=== PATIENT | female | born 1950 | race Caucasian/White ===

== ENCOUNTER → 2016-10-29 | Outpatient (CLI) | payer OTHER | DX: R05 Cough (principal); J98.09 Other diseases of bronchus, not elsewhere classified | CPT/HCPCS: 71020 ==

== ENCOUNTER → 2021-04-03 | Outpatient (CLI) | payer MEDICARE, OTHER ==
[~2021-04-03] MED LIST: LODINE CAP 300300 MG PO
== END ==
LOC: HEART 5 14:20
DX: R06.02 Shortness of breath (principal); R94.2 Abnormal results of pulmonary function studies; Z87.891 Personal history of nicotine dependence
CPT/HCPCS: 94010

== ENCOUNTER 2021-04-10 16:32 | Emergency (ER) | payer MEDICARE, OTHER ==
[2021-04-10] MEDS ORDERED: LODINE CAP 300300 MG PO (21:14)
== END 2021-04-10 21:27 | disposition home or self-care (01) ==
LOC: ER1 16:32
DX: S83.91XA Sprain of unspecified site of right knee, initial encounter (principal); W19.XXXA Unspecified fall, initial encounter; Y92.009 Unspecified place in unspecified non-institutional (private) residence as the place of occurrence of the external cause
CPT/HCPCS: 73562; 73700; 99284

== ENCOUNTER → 2021-04-23 | Outpatient (CLI) | payer MEDICARE, OTHER | LOC: KOH-I 04-20 08:15 | DX: M25.561 Pain in right knee (principal) | CPT/HCPCS: 73721 ==

== ENCOUNTER → 2021-05-29 | Outpatient (CLI) | payer MEDICARE, OTHER | LOC: KOH-I 15:00 | DX: M54.16 Radiculopathy, lumbar region (principal); M54.14 Radiculopathy, thoracic region; M51.34 Other intervertebral disc degeneration, thoracic region | CPT/HCPCS: 72125; 72128 ==

== ENCOUNTER → 2021-06-28 | Outpatient (CLI) | payer MEDICARE, OTHER | LOC: HEART 5 09:06 | DX: I20.8 Other forms of angina pectoris (principal); R06.02 Shortness of breath; R00.1 Bradycardia, unspecified | CPT/HCPCS: 78452; A9502; J2785 ==

== ENCOUNTER → 2021-07-05 | Outpatient (CLI) | payer MEDICARE, OTHER | LOC: KOH-I 12:42 | DX: R07.9 Chest pain, unspecified (principal) | CPT/HCPCS: 71100 ==

== ENCOUNTER → 2021-08-08 | Outpatient (CLI) | payer MEDICARE, OTHER ==
[~2021-08-08] MED LIST changes: +ACCUPRIL40 MG PO; +ALBUTEROL INH; +ALDACTONE25 MG PO; +ANTI-DIARRHEAL2 M1 PO; +CRESTOR5 MG PO; +DESYREL 50 MG T50 MG PO; +LEVOXYL150 MCG PO; +MELATONIN10 M2 PO; +OMEPRAZOLE40 MG PO; +PROZAC40 MG PO; +SINGULAIR10 MG PO; +SYMBICORT INH; +VITAMIN D21250 MCG PO
[2021-08-08 14:13] LABS: HEMOGLOBIN 13.9 gm/dl (12.3-15.3); RED BLOOD COUNT 4.73 M/UL (4.00-5.10); WHITE BLOOD COUNT 8.4 K/UL (4.5-11.0)
[2021-08-08 14:33] LABS: BUN/CREATININE RATIO 14 (0-10)
== END ==
LOC: OPSV2 08-07 11:30 → EDSTATUS 12:30 → OPSV2 12:30
PROVIDERS: Orthopaedic Surgery
DX: Z01.818 Encounter for other preprocedural examination (principal)
CPT/HCPCS: 71046; 80048; 81001; 85027; 87081

== ENCOUNTER → 2021-08-09 | Outpatient (CLI) | payer MEDICARE, OTHER ==
[~2021-08-09] MED LIST changes: +ADVAIR 500-501 EACH INH
== END ==
LOC: HEART 5 14:07
DX: J45.30 Mild persistent asthma, uncomplicated (principal)
CPT/HCPCS: 94010

== ENCOUNTER → 2021-08-19 | Outpatient (CLI) | payer MEDICARE, OTHER ==
[~2021-08-19] MED LIST changes: +ACETAMINOPHEN-1 EAC1 PO; -ALBUTEROL INH; -DESYREL 50 MG T50 MG PO; +METHYLPREDNISOLO4 MG PO; +PROVENTIL HFA6.7 GM INH; +SYMBICORT 16010.2 GM INH; -SYMBICORT INH; +TRAZODONE HCL100 MG PO
[2021-08-19 13:38] LABS: BUN/CREATININE RATIO 15 (0-10)
== END ==
LOC: LAB 12:41
PROVIDERS: Orthopaedic Surgery
DX: Z01.812 Encounter for preprocedural laboratory examination (principal); M54.12 Radiculopathy, cervical region; I10 Essential (primary) hypertension
CPT/HCPCS: 80048; 86850; 86900; 86901

== ENCOUNTER 2021-08-20 05:22 | Inpatient (IN) | payer MEDICARE, OTHER ==
[~2021-08-20] VITALS: Ht 170.2 cm; Wt 117.9 kg
[~2021-08-20 05:22] MED LIST changes: -ACETAMINOPHEN-1 EAC1 PO; -ADVAIR 500-501 EACH INH; -METHYLPREDNISOLO4 MG PO; -PROVENTIL HFA6.7 GM INH; -SYMBICORT 16010.2 GM INH; -TRAZODONE HCL100 MG PO
[2021-08-20] MEDS ORDERED: ADVAIR 500-501 EACH INH (06:43)
[2021-08-20 16:30] LABS: HEMOGLOBIN 13.6 gm/dl (12.3-15.3); RED BLOOD COUNT 4.6 M/UL (4.00-5.10); WHITE BLOOD COUNT 7.4 K/UL (4.5-11.0)
[2021-08-20 16:55] LABS: BUN/CREATININE RATIO 16 (0-10)
[2021-08-21 01:59] LABS: RED BLOOD COUNT 4.42 M/UL (4.00-5.10)
[2021-08-21 02:05] LABS: WHITE BLOOD COUNT 9.4 K/UL (4.5-11.0)
[2021-08-21 02:41] LABS: BUN/CREATININE RATIO 16 (0-10)
[2021-08-21] MEDS ORDERED: TRAZODONE HCL100 MG PO (16:57)
[2021-08-21] MEDS ORDERED: PROVENTIL HFA6.7 GM INH (17:06)
[2021-08-21] MEDS ORDERED: SYMBICORT 16010.2 GM INH (17:07)
[2021-08-21] MEDS ORDERED: METHYLPREDNISOLO4 MG PO (21:24)
[2021-08-21] MEDS ORDERED: ACETAMINOPHEN-1 EAC1 PO (21:25)
[2021-08-22 03:38] LABS: HEMOGLOBIN 12.5 gm/dl (12.3-15.3); RED BLOOD COUNT 4.21 M/UL (4.00-5.10)
[2021-08-22 03:47] LABS: WHITE BLOOD COUNT 15.9 K/UL (4.5-11.0)
[2021-08-22 04:10] LABS: BUN/CREATININE RATIO 21 (0-10)
[2021-08-23 03:42] LABS: HEMOGLOBIN 13.3 gm/dl (12.3-15.3); RED BLOOD COUNT 4.53 M/UL (4.00-5.10)
[2021-08-23 03:46] LABS: WHITE BLOOD COUNT 10.5 K/UL (4.5-11.0)
[2021-08-23 04:08] LABS: BUN/CREATININE RATIO 24 (0-10)
[2021-08-24 03:47] LABS: HEMOGLOBIN 13.8 gm/dl (12.3-15.3); RED BLOOD COUNT 4.68 M/UL (4.00-5.10); WHITE BLOOD COUNT 12.7 K/UL (4.5-11.0)
[2021-08-24 04:18] LABS: BUN/CREATININE RATIO 19 (0-10)
[2021-08-24] MEDS ORDERED: CYCLOBENZAPRINE10 MG PO (10:19)
== END 2021-08-24 11:00 | disposition home or self-care (01) | DRG 460 ==
LOC: OR 05:22 → CCU 15:47 → PROG CARE 08-21 19:36
PROVIDERS: Internal Medicine; ADMIT Orthopaedic Surgery
PROC: 0RG6071 Fusion of Thoracic Vertebral Joint with Autologous Tissue Substitute, Posterior Approach, Posterior Column, Open Approach (ICD-10-PCS; 2021-08-20)
PROC: 0RG4071 Fusion of Cervicothoracic Vertebral Joint with Autologous Tissue Substitute, Posterior Approach, Posterior Column, Open Approach (ICD-10-PCS; 2021-08-20)
PROC: 00NW0ZZ Release Cervical Spinal Cord, Open Approach (ICD-10-PCS; 2021-08-20)
PROC: 4A11X4G Monitoring of Peripheral Nervous Electrical Activity, Intraoperative, External Approach (ICD-10-PCS; 2021-08-20)
PROC: 0RG2071 Fusion of 2 or more Cervical Vertebral Joints with Autologous Tissue Substitute, Posterior Approach, Posterior Column, Open Approach (ICD-10-PCS; principal; 2021-08-20 07:30)
DX: M48.02 Spinal stenosis, cervical region (principal); M47.12 Other spondylosis with myelopathy, cervical region; Z68.41 Body mass index [BMI] 40.0-44.9, adult; I10 Essential (primary) hypertension; Z20.822 Contact with and (suspected) exposure to COVID-19; E78.5 Hyperlipidemia, unspecified; J45.909 Unspecified asthma, uncomplicated; F32.9 Major depressive disorder, single episode, unspecified; F41.9 Anxiety disorder, unspecified; E87.6 Hypokalemia; J44.9 Chronic obstructive pulmonary disease, unspecified; E03.9 Hypothyroidism, unspecified; E83.42 Hypomagnesemia; E83.51 Hypocalcemia; M40.292 Other kyphosis, cervical region; E66.01 Morbid (severe) obesity due to excess calories; M35.3 Polymyalgia rheumatica; Z80.3 Family history of malignant neoplasm of breast; Z80.1 Family history of malignant neoplasm of trachea, bronchus and lung; Z90.49 Acquired absence of other specified parts of digestive tract; Z79.899 Other long term (current) drug therapy; Z87.891 Personal history of nicotine dependence
CPT/HCPCS: 36415; 36600; 71045; 72040; 76000; 80048; 80053; 82803; 83735; 83880; 85025; 85027; 85610; 85730; 86850; 86900; 86901; 94002; 94003; 94640; 94664; 94760; 97116-GP-CQ; 97162; 97165; 97530; 97535; C1713; C1762; J0360; J0610; J0690; J1040; J1100; J1170; J2001; J2250; J2370; J2405; J2704; J3010; J3370; J3475; J3480; J7030; J7040; J7120

== ENCOUNTER 2021-09-08 14:57 | Inpatient (IN) | payer MEDICARE, OTHER ==
[~2021-09-08] VITALS: Ht 165.1 cm; Wt 111.1 kg
[~2021-09-08 14:57] MED LIST changes: +ACETAMINOPHEN-1 EAC1 PO; +ADVAIR 500-501 EACH INH; +CYCLOBENZAPRINE10 MG PO; +METHYLPREDNISOLO4 MG PO; +PROVENTIL HFA6.7 GM INH; +SYMBICORT 16010.2 GM INH; +TRAZODONE HCL100 MG PO
[2021-09-08 16:44] LABS: HEMOGLOBIN 12.8 gm/dl (12.3-15.3); RED BLOOD COUNT 4.53 M/UL (4.00-5.10); WHITE BLOOD COUNT 6.7 K/UL (4.5-11.0)
[2021-09-08 17:06] LABS: BUN/CREATININE RATIO 22 (0-10)
[2021-09-09 10:48] LABS: HEMOGLOBIN 14.1 gm/dl (12.3-15.3); RED BLOOD COUNT 4.93 M/UL (4.00-5.10)
[2021-09-09 11:01] LABS: BUN/CREATININE RATIO 17 (0-10)
[2021-09-10 04:03] LABS: HEMOGLOBIN 12.4 gm/dl (12.3-15.3); RED BLOOD COUNT 4.32 M/UL (4.00-5.10); WHITE BLOOD COUNT 7.9 K/UL (4.5-11.0)
[2021-09-10 04:45] LABS: BUN/CREATININE RATIO 16 (0-10)
[2021-09-11 05:39] LABS: HEMOGLOBIN 12.2 gm/dl (12.3-15.3); RED BLOOD COUNT 4.29 M/UL (4.00-5.10); WHITE BLOOD COUNT 9.1 K/UL (4.5-11.0)
[2021-09-11 05:51] LABS: BUN/CREATININE RATIO 16 (0-10)
--- NOTE | 2021-09-12 04:10 | NUR ---
LATE ENTRY 09/12/21 0300 took report from JIN Nye
[2021-09-12 05:59] LABS: HEMOGLOBIN 12.6 gm/dl (12.3-15.3); RED BLOOD COUNT 4.42 M/UL (4.00-5.10); WHITE BLOOD COUNT 9.5 K/UL (4.5-11.0)
[2021-09-12 07:44] LABS: BUN/CREATININE RATIO 18 (0-10)
[2021-09-13 04:42] LABS: HEMOGLOBIN 12.7 gm/dl (12.3-15.3); RED BLOOD COUNT 4.5 M/UL (4.00-5.10); WHITE BLOOD COUNT 8.7 K/UL (4.5-11.0)
[2021-09-13 05:53] LABS: BUN/CREATININE RATIO 26 (0-10)
[2021-09-13] MEDS ORDERED: BACTRIM DS TAB1 EACH PO (12:58)
== END 2021-09-13 14:36 | disposition home or self-care (01) | DRG 454 ==
LOC: PROG CARE 14:57 → CCU 09-10 15:13
PROVIDERS: Internal Medicine; ADMIT Orthopaedic Surgery
PROC: 0RG10A0 Fusion of Cervical Vertebral Joint with Interbody Fusion Device, Anterior Approach, Anterior Column, Open Approach (ICD-10-PCS; principal; 2021-09-10)
PROC: 0RG1071 Fusion of Cervical Vertebral Joint with Autologous Tissue Substitute, Posterior Approach, Posterior Column, Open Approach (ICD-10-PCS; 2021-09-10)
PROC: 0RB30ZZ Excision of Cervical Vertebral Disc, Open Approach (ICD-10-PCS; 2021-09-10)
PROC: 4A10X4G Monitoring of Central Nervous Electrical Activity, Intraoperative, External Approach (ICD-10-PCS; 2021-09-10)
PROC: 0RP30JZ Removal of Synthetic Substitute from Cervical Vertebral Disc, Open Approach (ICD-10-PCS; 2021-09-10)
DX: T84.89XA Other specified complication of internal orthopedic prosthetic devices, implants and grafts, initial encounter (principal); G95.89 Other specified diseases of spinal cord; Z68.41 Body mass index [BMI] 40.0-44.9, adult; Z20.822 Contact with and (suspected) exposure to COVID-19; I10 Essential (primary) hypertension; E78.5 Hyperlipidemia, unspecified; J44.9 Chronic obstructive pulmonary disease, unspecified; M35.3 Polymyalgia rheumatica; M43.12 Spondylolisthesis, cervical region; M40.292 Other kyphosis, cervical region; E03.9 Hypothyroidism, unspecified; K21.9 Gastro-esophageal reflux disease without esophagitis; E66.01 Morbid (severe) obesity due to excess calories; G47.00 Insomnia, unspecified; F17.290 Nicotine dependence, other tobacco product, uncomplicated; F41.9 Anxiety disorder, unspecified; R29.6 Repeated falls; E11.65 Type 2 diabetes mellitus with hyperglycemia; M81.0 Age-related osteoporosis without current pathological fracture; E55.9 Vitamin D deficiency, unspecified; W01.0XXA Fall on same level from slipping, tripping and stumbling without subsequent striking against object, initial encounter; Y83.8 Other surgical procedures as the cause of abnormal reaction of the patient, or of later complication, without mention of misadventure at the time of the procedure; Z91.040 Latex allergy status; F32.A Depression, unspecified; Z90.49 Acquired absence of other specified parts of digestive tract; Y92.091 Bathroom in other non-institutional residence as the place of occurrence of the external cause
CPT/HCPCS: 36415; 36600; 70498; 71045; 72040; 80048; 80053; 81001; 82803; 83735; 85025; 85379; 85610; 85730; 86850; 86900; 86901; 93005; 94002; 94003; 94640; 94664; 94760; 97161; 97166; 97530; C1713; C1762; J0360; J0690; J1100; J1170; J2270; J2405; J2704; J7030; J7040; J7120; Q9967; U0002

== ENCOUNTER 2022-02-28 17:36 | Emergency (ER) | payer MEDICARE, OTHER ==
[~2022-02-28 17:36] MED LIST changes: +BACTRIM DS TAB1 EACH PO
[2022-02-28 18:58] LABS: HEMOGLOBIN 13.4 gm/dl (12.3-15.3); RED BLOOD COUNT 4.84 M/UL (4.00-5.10); WHITE BLOOD COUNT 5.9 K/UL (4.5-11.0)
[2022-02-28 19:30] LABS: BUN/CREATININE RATIO 11 (0-10)
== END 2022-02-28 22:10 | disposition home or self-care (01) ==
LOC: ER1 17:36
PROVIDERS: Family Medicine
DX: R07.89 Other chest pain (principal); F19.90 Other psychoactive substance use, unspecified, uncomplicated; E66.9 Obesity, unspecified; M54.2 Cervicalgia; L97.529 Non-pressure chronic ulcer of other part of left foot with unspecified severity; M35.3 Polymyalgia rheumatica; E78.5 Hyperlipidemia, unspecified; J44.9 Chronic obstructive pulmonary disease, unspecified; I10 Essential (primary) hypertension; Z90.49 Acquired absence of other specified parts of digestive tract; E03.9 Hypothyroidism, unspecified; F17.290 Nicotine dependence, other tobacco product, uncomplicated
CPT/HCPCS: 71045; 80053; 82550; 82553; 84484; 85025; 93005; 99285

== ENCOUNTER 2022-03-29 14:45 | Emergency (ER) | payer MEDICARE, OTHER ==
[2022-03-29 17:53] LABS: HEMOGLOBIN 12.1 gm/dl (12.3-15.3); RED BLOOD COUNT 4.42 M/UL (4.00-5.10); WHITE BLOOD COUNT 6.8 K/UL (4.5-11.0)
== END 2022-03-29 18:08 | disposition short-term general hospital (02) ==
LOC: ER1 14:45
PROVIDERS: Emergency Medicine
DX: S06.5X0A Traumatic subdural hemorrhage without loss of consciousness, initial encounter (principal); S32.10XA Unspecified fracture of sacrum, initial encounter for closed fracture; S32.2XXA Fracture of coccyx, initial encounter for closed fracture; S22.039A Unspecified fracture of third thoracic vertebra, initial encounter for closed fracture; S80.02XA Contusion of left knee, initial encounter; I48.91 Unspecified atrial fibrillation; I10 Essential (primary) hypertension; E78.5 Hyperlipidemia, unspecified; Z51.81 Encounter for therapeutic drug level monitoring; W01.198A Fall on same level from slipping, tripping and stumbling with subsequent striking against other object, initial encounter
CPT/HCPCS: 70450; 71045; 72125; 72128; 72131; 72192; 73564; 80053; 82550; 82553; 84484; 85025; 85610; 85730; 93005; 99285

== ENCOUNTER 2022-04-24 10:36 | Inpatient (IN) | payer MEDICARE, OTHER ==
[~2022-04-24] VITALS: Ht 165.1 cm; Wt 90.3 kg
[~2022-04-24 10:36] MED LIST changes: -ALDACTONE25 MG PO; +ALDACTONE50 MG PO; -MELATONIN10 M2 PO; +MELATONIN5 M2 PO
[2022-04-24 11:05] LABS: HEMOGLOBIN 13.9 gm/dl (12.3-15.3); RED BLOOD COUNT 4.94 M/UL (4.00-5.10); WHITE BLOOD COUNT 8.7 K/UL (4.5-11.0)
[2022-04-24] MEDS ORDERED: LISINOPRIL20 MG PO (14:46)
[2022-04-24] MEDS ORDERED: METHYLPREDNISOLO4 MG PO (14:47)
[2022-04-25 03:39] LABS: HEMOGLOBIN 12.3 gm/dl (12.3-15.3); WHITE BLOOD COUNT 7.6 K/UL (4.5-11.0)
[2022-04-25 03:56] LABS: RED BLOOD COUNT 4.41 M/UL (4.00-5.10)
[2022-04-26] MEDS ORDERED: HYDRALAZINE HCL25 MG PO (09:38)
[2022-04-30] MEDS ORDERED: CARVEDILOL12.5 MG PO (11:44)
== END 2022-04-30 13:51 | DRG 683 ==
LOC: ER1 10:36 → MED SURG 4 13:50 → CDU 13:50 → MED SURG 4 18:09
PROVIDERS: Emergency Medicine; Internal Medicine Nephrology; Physician Assistant; ADMIT Internal Medicine
DX: N17.9 Acute kidney failure, unspecified (principal); E87.2 Acidosis; E87.5 Hyperkalemia; E03.9 Hypothyroidism, unspecified; Z20.822 Contact with and (suspected) exposure to COVID-19; E66.9 Obesity, unspecified; E83.52 Hypercalcemia; Z66 Do not resuscitate; I10 Essential (primary) hypertension; E78.5 Hyperlipidemia, unspecified; J44.9 Chronic obstructive pulmonary disease, unspecified; Z87.81 Personal history of (healed) traumatic fracture; Z90.49 Acquired absence of other specified parts of digestive tract; Z87.891 Personal history of nicotine dependence; Z80.1 Family history of malignant neoplasm of trachea, bronchus and lung; Z80.3 Family history of malignant neoplasm of breast; Z80.42 Family history of malignant neoplasm of prostate; Z68.33 Body mass index [BMI] 33.0-33.9, adult
CPT/HCPCS: 36415; 70450; 71045; 80048; 80053; 81001; 82550; 82553; 82570; 82962; 83735; 84133; 84156; 84300; 84484; 85025; 85610; 85730; 87086; 93005; 94640; 94664; 94760; 96361; 96374; 97116; 97116-GP-CQ; 97161; 97166; 99285; J0610; J2405; J3475; P9047; U0002